=== PATIENT | female | born 1995 | race Two or more races ===

== ENCOUNTER → 2018-09-17 | Outpatient (CLI) | payer MEDICAID | END | disposition home or self-care (01) | LOC: RAD 08:37 | PROVIDERS: ATTEND Nurse Practitioner Family | DX: N83.291 Other ovarian cyst, right side (principal) | CPT/HCPCS: 76700; 76830 ==

== ENCOUNTER 2018-09-18 09:48 | Emergency (ER) | payer MEDICAID ==
[~2018-09-18] VITALS: Ht 162.6 cm; Wt 99.6 kg
--- NOTE | 2018-09-18 10:24 | NUR ---
SENIOR UI DEVELOPER: PT AMBULATORY TO ED ROOM 24 FROM [facility] IN [facility] AT THIS TIME
--- NOTE | 2018-09-18 10:28 | NUR ---
CONTACT WITH PT, 23 YR OLD FEMALE HERE WITH C/O "I'M HAVING ABD PAIN AND I'M JUST HAVING THAT REAL BAD BLOATING AND SOB. YESTERDAY UC SENT ME HERE FOR AN US, SAID I HAD A CYST ON MY OVARY. MY IHS DR TOLD ME MY TEST WAS INCONCLUSIVE" "SHE TOOK A HOME TEST ON AND IT WAS POSITIVE" LMP 07/07/18
[2018-09-18 10:35] VITALS: BP 110/64
--- NOTE | 2018-09-18 10:35 | NUR ---
PT TO BR, TO ATTEMPT TO PROVIDE UA SAMPLE, GAIT STEADY.
--- NOTE | 2018-09-18 10:53 | NUR ---
DR AREVALO AT BEDSIDE TO DANI[facility] PT
--- NOTE | 2018-09-18 10:54 | NUR ---
PT UPSET, RAISING VOICE, THREW URINE SPECIMAN TUBES OUT THE DOOR, "I'M LEAVING, YOU NEED TO GET OUT OF HERE, I DONT WANT TO SAY ANYTHING RUDE TO YOU" INFORMED PT THAT SHE CAN LEAVE, BUT SHE CANNOT THROW THINGS, "GET OUT" PT LEFT AMB WITH SON AND BOYFRIEND.
== END 2018-09-18 11:01 | disposition left against medical advice (07) ==
LOC: ED 10:50
DX: R10.84 Generalized abdominal pain (principal)
CPT/HCPCS: 93005; 99283